=== PATIENT | male | born 1995 | race Two or more races ===

== ENCOUNTER 2024-11-02 02:17 | Emergency (ER) | payer OTHER ==
[2024-11-02 02:25] VITALS: BP 134/76; PULSE 73; RESP 20; TEMP 98; BMI 23.6
[2024-11-02] MEDS: ACETAMINOPHEN 325 MG TABLET (FP) PO ONE (03:17)
== END 2024-11-02 04:54 | disposition home or self-care (01) ==
LOC: JER 02:17
DX: S01.111A Laceration without foreign body of right eyelid and periocular area, initial encounter (principal); Y04.0XXA Assault by unarmed brawl or fight, initial encounter
CPT/HCPCS: 70450-TC; 70486-TC; 72125-TC; 99284-25

== ENCOUNTER 2024-11-03 14:39 | Emergency (ER) | payer OTHER ==
[2024-11-03 14:59] VITALS: BP 124/81; PULSE 82; RESP 20; TEMP 98.4; BMI 23.6
[2024-11-03] MEDS ORDERED: BACITRACIN ZINC 15 GM TUBE TOPICAL OINTMENT ONE (15:09)
[2024-11-03] MEDS ORDERED: IBUPROFEN 400 MG TABLET (FP) PO ONE (15:09)
[2024-11-03] MEDS: BACITRACIN 0.9 GM PACKET TP ONE (15:10)
[2024-11-03] MEDS: IBUPROFEN 400 MG TABLET (FP) PO ONE (15:10)
== END 2024-11-03 15:21 | disposition home or self-care (01) ==
LOC: JERFT 14:39
DX: S01.511A Laceration without foreign body of lip, initial encounter (principal); R42 Dizziness and giddiness; X58.XXXA Exposure to other specified factors, initial encounter
CPT/HCPCS: 99283-25